=== PATIENT | female | born 1980 | race Caucasian/White ===

== ENCOUNTER 2024-12-06 02:02 | Emergency (ER) | payer BC, OTHER ==
[~2024-12-06] VITALS: Wt 104.5 kg
[~2024-12-06 02:02] MED LIST: METFORMIN500 MG; ULTRAM 50MG TAB50 MG
[2024-12-06] MEDS ORDERED: OZEMPIC2 MG/0.75 SQ (02:21)
[2024-12-06] MEDS ORDERED: ALBUTEROL2.5 MG/3 M IH (02:22)
[2024-12-06] MEDS ORDERED: PROAIR HFA0.09 MG/AC IH (02:22)
[2024-12-06] MEDS ORDERED: MUCINEX D1 TER PO (02:23)
[2024-12-06] MEDS ORDERED: Acetaminophen 500 MG TAB PO ONE (03:00)
[2024-12-06] MEDS ORDERED: Benzonatate 100 MG CAP PO ONE (03:00)
[2024-12-06] MEDS ORDERED: PULMICORT0.5 MG/2 M IH (03:08)
[2024-12-06] MEDS ORDERED: BENZONATATE200 MG PO (03:08)
[2024-12-06 03:19] VITALS: BP 120/86
== END 2024-12-06 03:19 | disposition home or self-care (01) ==
LOC: ED 02:02
DX: J10.1 Influenza due to other identified influenza virus with other respiratory manifestations (principal); F17.210 Nicotine dependence, cigarettes, uncomplicated; Z79.899 Other long term (current) drug therapy; Z87.09 Personal history of other diseases of the respiratory system; Z85.41 Personal history of malignant neoplasm of cervix uteri